=== PATIENT | female | born 1985 | race African-American/Black ===

== ENCOUNTER 2017-02-28 14:38 | Emergency (ER) | payer SELFPAY ==
[~2017-02-28] VITALS: Ht 172.7 cm; Wt 100.0 kg
[2017-02-28 15:07] VITALS: BP 150/89
[2017-02-28 15:59] LABS: INFLUENZA TYPE B NEGATIVE FOR TYPE B (NEGATIVE)
== END 2017-02-28 17:20 | disposition left against medical advice (07) ==
LOC: EMS 14:40
DX: R05 Cough (principal); R53.83 Other fatigue; R11.10 Vomiting, unspecified; J45.909 Unspecified asthma, uncomplicated; Z53.21 Procedure and treatment not carried out due to patient leaving prior to being seen by health care provider
CPT/HCPCS: 87804; 99281